=== PATIENT | male | born 1955 | race Caucasian/White ===

== ENCOUNTER → 2020-05-04 | Outpatient (CLI) | payer MEDICARE ==
--- NOTE | 2020-05-04 15:15 | KCIC ---
Examination: KNEE RIGHT 3V History: Reason: RIGHT KNEE PAIN, SWELLING / Spl. Instructions: Pain a few weeks. / History: Comparison/Correlation: None Findings: Total 3 images of the right knee were obtained. Joint spaces are normal. No degenerative change. No fracture or bone destruction. Joint effusion noted. Impression: Small joint effusion. Electronically signed by: Braydon Nguyễn MD (05/04/2020 3:12 PM) [id number]
== END ==
LOC: KCIC 13:37
PROVIDERS: ATTEND Family Medicine
DX: M25.461 Effusion, right knee (principal)
CPT/HCPCS: 73562